=== PATIENT | male | born 1985 | race Caucasian/White ===

== ENCOUNTER 2016-08-22 00:48 | Emergency (ER) | payer MEDICAID ==
[2016-08-22 03:14] VITALS: BP 121/80
== END 2016-08-22 03:14 | disposition home or self-care (01) ==
LOC: ED 00:48
DX: S05.12XA Contusion of eyeball and orbital tissues, left eye, initial encounter (principal); S01.112A Laceration without foreign body of left eyelid and periocular area, initial encounter; H11.32 Conjunctival hemorrhage, left eye; Y08.89XA Assault by other specified means, initial encounter; Y93.89 Activity, other specified; Y92.89 Other specified places as the place of occurrence of the external cause; Y99.8 Other external cause status
CPT/HCPCS: 90715